=== PATIENT | female | born 1980 | race Caucasian/White ===

== ENCOUNTER 2017-03-03 07:15 | Emergency (ER) | payer BC, OTHER ==
[2017-03-03] MEDS ORDERED: diphenhydrAMINE HCL 50 MG/ML VIAL IV ONE (07:37)
[2017-03-03] MEDS ORDERED: METOCLOPRAMIDE HCL 5 MG/ML VIAL IV ONE (07:37)
[2017-03-03] MEDS ORDERED: PROMETHAZINE HCL 25 MG/ML AMPUL IM ONE (07:37)
[2017-03-03] MEDS ORDERED: PROMETHAZINE HCL 25 MG/ML AMPUL ONE (07:42)
--- NOTE | 2017-03-03 07:49 | ERNOTE ---
<AddyValdez - Last Filed: 03/03/17 10:08> Head Injury HPI - Immun/Allergies/Home Medications Immunization: IMMUNIZATION HX Immunizations Up to Date Yes History of Influenza Vaccine Yes Hx Pneumococcal Vaccination Yes Allergies/Adverse Reactions: Allergies Allergy/AdvReac Type Severity Reaction Status Date / Time azithromycin [From Zithromax] Allergy Unknown Verified 03/09/17 17:55 Home Medications: HOME MEDICATIONS Ibuprofen [Motrin] 600 mg PO Q6H PRN #0 tablet 05/16/14 [Last Taken Unknown] Acetaminophen [Tylenol] 325 mg PO PRN 07/25/15 [Last Taken Unknown] Ondansetron [Zofran Odt] 4 mg PO Q8H PRN #7 tab 03/03/17 [Last Taken Unknown] Mirena 03/08/17 [Last Taken Unknown] Xanax 0.25 mg PO DAILY PRN 03/08/17 [Last Taken Unknown] Amoxicillin/Potassium Clav [Augmentin 875-125 Tablet] 1 each PO BID #20 tablet 03/09/17 [Last Taken Unknown] Meclizine HCl [Antivert] 25 mg PO Q6H #28 tablet 03/09/17 [Last Taken Unknown] Mometasone Furoate [Nasonex] 1 spray NS DAILY #1 inhaler 03/09/17 [Last Taken Unknown] Ondansetron [Zofran Odt] 4 mg PO Q6H PRN #20 tab 03/09/17 [Last Taken Unknown] - Family History Father Family History - Medical: No pertinent hx Family History - Cardiac/Respiratory: No pertinent hx Mother Family History - Medical: No pertinent hx Family History - Cardiac/Respiratory: No pertinent hx ED Progress - Vital Signs Vital Signs: Vital Signs 03/03/17 03/03/17 07:19 08:35 Temperature 36.0 C L 36.5 C Pulse Rate 82 80 Respiratory 14 14 Rate Blood Pressure 159/107 130/78 O2 Sat by Pulse 100 98 Oximetry - CT/Ultrasound CT/Ultrasound Narrative: CT HEAD = NEGATIVE / ARGUS REPORT. - Progress/Reassessment Chief Complaint: Head Injury Departure Clinical Impression: Head contusion Qualifiers: Encounter type: sequela Contusion of head detail: unspecified part of head Qualified Code(s): S00.93XS - Contusion of unspecified part of head, sequela - Departure Disposition: Home Follow Up Needed Condition: Fair Instructions: Head Injury, Adult, [id number], Form - Excuse from Work, School , or Physical Activity Additional Instructions: REST, LIGHT DIET, ICE TO SORE AREA FOR 30 MINS EVERY 4 HOURS NEEDED. USE TYLENOL 650 MG EVERY 4 HOURS IF NEEDED. RECHECK WITH YOUR DOCTOR IF WORSE OR NOT IMPROVING IN 3-4 DAYS. Referrals: Kaity Carvajal MD [Primary Care Provider] - Prescriptions: Ondansetron [Zofran Odt] 4 mg PO Q8H PRN #7 tab PRN Reason: Vomiting <Riley Tamayo - Last Filed: 05/18/17 08:47> Head Injury HPI - Narrative Date of Service: 03/03/17 - General Injury to: head Source: patient - Immun/Allergies/Home Medications Immunization: IMMUNIZATION HX Immunizations Up to Date Yes History of Influenza Vaccine Yes Hx Pneumococcal Vaccination Yes - History of Present Illness Narrative: 26 year old that was putting her son to bed when their heads hit each other at about 2030 last night. Since the incident she has had a persistent headache that has worsened. The headache differs from her typical migraines in that it is in a number of locations. Last night she took a NSAID but it has not decreased the pain. Complaints of N/V and mild dizziness that has worsened. Hx of viral meningitis two years ago. Currently being treated with steroids and an antibiotic for an upper respiratory infection. Occurred: yesterday Location Occurred: home Severity: moderate Head Injury Location: frontal Method of Injury: Reports: direct blow Loss of Consciousness: Reports: no loss of consciousness Associated Symptoms: Reports: headaches, nausea, vomiting Review of Systems - Review of Systems Constitutional: Present: no symptoms reported EYE: Present: other - dizziness ENT: Present: no symptoms reported Respiratory: Present: See HPI Cardiology: Present: no symptoms reported Gastrointestinal/Abdominal: Present: nausea, vomiting Genitourinary: Present: no symptoms reported Musculoskeletal: Present: no symptoms reported Skin: Present: no symptoms reported Neurological: Present: anxiety, headache, dizziness/light-headedness Endocrine: Present: no symptoms reported Hematologic/Lymphatic: Present: no symptoms reported Psych: Present: no symptoms reported - Patient's Past Medical History Patient History - Medical: No pertinent hx Patient History - Cardiac/Respiratory: No pertinent hx Patient History - Cancer: No Hx of Cancer Patient History - Surgical Procedures: Cholecystectomy, D & C, Other Patient History - Other: None LMP (females 10-50): mirena - Family History Father Family History - Medical: No pertinent hx Family History - Cardiac/Respiratory: No pertinent hx Mother Family History - Medical: No pertinent hx Family History - Cardiac/Respiratory: No pertinent hx - Social History Living Situations: home Abuse History: No History of abuse Psych History: Hx of Anxiety Smoking Status: Never smoker Alcohol Use: occasionally Drug Use: none - Immunizations Immunizations Up to Date: Yes Hx Pneumococcal Vaccination: Yes History of Influenza Vaccine: Yes Physical Exam - Physical Exam Narrative: Appears to be in pain, holding an ice pack on her head. Mildly photophobic. General Appearance: Present: no apparent distress Eye Exam: Normal inspection: bilateral, PERRL: bilateral Ears, Nose, Throat: Present: normal ENT inspection Neck: Present: normal inspection, supple Respiratory: Present: no respiratory distress Cardiovascular/Chest: Present: regular rate, rhythm Gastrointestinal/Abdominal: Present: nondistended Back Exam: Present: normal inspection Extremity Exam: Present: normal inspection Neurological Exam: Present: alert, oriented, normal mood/affect, surveyor geodetic II-XII nml as tested, normal cerebellar test - heel to mar and finger to nose are normal. Skin Exam: Present: normal color ED Progress - Vital Signs Patient's Vital Signs:: I have reviewed the patient's vital signs. Vital Signs: Vital Signs 03/03/17 07:19 Temperature 36.0 C L Pulse Rate 82 Respiratory 14 Rate Blood Pressure 159/107 O2 Sat by Pulse 100 Oximetry - Transfer of Care Physician Sign Out: Riley Tamayo Receiving Physician: Valdez Daly - medications are pending to treat the migraine Pending Results: CT/MRI results, Pain-control
[2017-03-03] MEDS ORDERED: ACETAMINOPHEN 500 MG TABLET PO ONE (07:50)
[2017-03-03] MEDS ORDERED: diphenhydrAMINE HCL 50 MG/ML VIAL ONE (07:55)
[2017-03-03] MEDS ORDERED: METOCLOPRAMIDE HCL 5 MG/ML VIAL ONE (07:55)
[2017-03-03] MEDS ORDERED: DEXAMETHASONE SOD PHOSPHATE 10 MG/ML VIAL IV ONE (07:57)
[2017-03-03] MEDS ORDERED: DEXAMETHASONE SOD PHOSPHATE 10 MG/ML VIAL ONE (08:25)
[2017-03-03 10:19] VITALS: BP 138/80
== END 2017-03-03 10:23 | disposition home or self-care (01) ==
LOC: ER 07:15
DX: S00.93XA Contusion of unspecified part of head, initial encounter (principal); W50.0XXA Accidental hit or strike by another person, initial encounter; Y92.009 Unspecified place in unspecified non-institutional (private) residence as the place of occurrence of the external cause

== ENCOUNTER 2017-03-09 17:48 | Emergency (ER) | payer BC, OTHER ==
[2017-03-09] MEDS ORDERED: oxyCODONE HCL/ACETAMINOPHEN 1 TAB TABLET PO ONE (18:38)
[2017-03-09] MEDS ORDERED: MECLIZINE HCL 25 MG TABLET PO ONE (18:38)
[2017-03-09] MEDS ORDERED: KETOROLAC TROMETHAMINE 30 MG/ML VIAL IM ONE (18:38)
[2017-03-09] MEDS ORDERED: ONDANSETRON 4 MG TAB.RAPDIS PO ONE (18:38)
--- NOTE | 2017-03-09 18:45 | ERNOTE ---
Medical Problem HPI - Narrative Date of Service: 03/09/17 - General Chief Complaint: General Assessment Time Seen by Provider: 03/09/17 18:05 Source: patient Exam Limitations: no limitations - Immun/Allergies/Home Medications Immunizations: IMMUNIZATION HX Immunizations Up to Date Yes History of Influenza Vaccine Yes Hx Pneumococcal Vaccination Yes Allergies/Adverse Reactions: Allergies azithromycin [From Zithromax] Allergy (Unknown, Verified 03/09/17 17:55) Home Medications: HOME MEDICATIONS Ibuprofen [Motrin] 600 mg PO Q6H PRN #0 tablet 05/16/14 [Last Taken Unknown] Acetaminophen [Tylenol] 325 mg PO PRN 07/25/15 [Last Taken Unknown] Ondansetron [Zofran Odt] 4 mg PO Q8H PRN #7 tab 03/03/17 [Last Taken Unknown] Mirena 03/08/17 [Last Taken Unknown] Xanax 0.25 mg PO DAILY PRN 03/08/17 [Last Taken Unknown] Amoxicillin/Potassium Clav [Augmentin 875-125 Tablet] 1 each PO BID #20 tablet 03/09/17 [Last Taken Unknown] Meclizine HCl [Antivert] 25 mg PO Q6H #28 tablet 03/09/17 [Last Taken Unknown] Mometasone Furoate [Nasonex] 1 spray NS DAILY #1 inhaler 03/09/17 [Last Taken Unknown] Ondansetron [Zofran Odt] 4 mg PO Q6H PRN #20 tab 03/09/17 [Last Taken Unknown] - History of Present History Narrative: Last patient hit her head. Patient has been with headache, vertigo, unbalance, generalized weakness and some confusion. Patient was seen by PCP and was send to Physical Therapy. Timing: constant Severity: severe Modifying Factors - (Improves): Present: other - nothing Modifying Factors - (Worsens): Present: movement, other - head position changes Review of Systems - Review of Systems Constitutional: Present: weakness - generalized, malaise. Absent: fever, chills , diaphoresis EYE: Absent: double vision, vision changes ENT: Absent: ear pain, nose congestion, nasal drainage Respiratory: Present: no symptoms reported Cardiology: Present: no symptoms reported Gastrointestinal/Abdominal: Present: no symptoms reported Genitourinary: Present: no symptoms reported Musculoskeletal: Present: no symptoms reported Skin: Present: no symptoms reported Neurological: Present: headache, dizziness/light-headedness - vertigo, numbness. Absent: pre-existing deficit Endocrine: Present: no symptoms reported Hematologic/Lymphatic: Present: no symptoms reported Psych: Present: no symptoms reported All Other Systems: All systems neg except as marked - Patient's Past Medical History Patient History - Medical: No pertinent hx Patient History - Cardiac/Respiratory: No pertinent hx Patient History - Cancer: No Hx of Cancer Patient History - Surgical Procedures: Cholecystectomy, D & C, Other Patient History - Other: None - Family History Father Family History - Medical: No pertinent hx Family History - Cardiac/Respiratory: No pertinent hx Mother Family History - Medical: No pertinent hx Family History - Cardiac/Respiratory: No pertinent hx - Social History Living Situations: home Abuse History: No History of abuse Psych History: Hx of Anxiety Alcohol Use: occasionally Drug Use: none - Immunizations Immunizations Up to Date: Yes Hx Pneumococcal Vaccination: Yes History of Influenza Vaccine: Yes Physical Exam - Physical Exam General Appearance: Present: wd/wn, alert, no apparent distress Eye Exam: Normal inspection: bilateral, PERRL: bilateral, EOMI: bilateral Ears, Nose, Throat: Present: normal ENT inspection, normal pharynx Neck: Present: normal inspection, nontender Respiratory: Present: no respiratory distress, normal breath sounds, no accessory muscle use, chest nontender, lungs clear Cardiovascular/Chest: Present: regular rate, rhythm, no murmur, normal peripheral pulses Gastrointestinal/Abdominal: Present: normal bowel sounds, nontender, nondistended, soft, no organomegaly Extremity Exam: Present: normal inspection, non-tender, normal range of motion, no edema Neurological Exam: Present: alert, oriented, normal mood/affect, no motor/ sensory deficits, other - Hallpike Maneuver positive, GCS: 15/15, NIH Stroke Scale: 0 Skin Exam: Present: normal color, warm/dry Lymphatic Exam: Present: no adenopathy ED Progress - Date and Time Seen: Date and Time: 03/09/17 18:47 Patient was seen at ER on previously, CT of the head report was noticed. Patient was found with mucosal thickening. Patient was done labs recently and was found with mild elevated WBC. Patient has hx of head Tx. Patient still with vertigo and headache. Patient has Hx of Headaches. Patient with no LOC and no changes on vision. Patient will was found with nystagmus. Patient will be given Tx and pain management. 03/09/17 19:41 GCS: 15/15, NIH Stroke Scale: 0 Patient at the moment is feeling better and has no distress. Patient with a FMS and no gross neurologic deficits. - Results and Orders Patient's Lab Results:: I have reviewed the patient's lab results. Results and Orders: Patient was found with elevated WBC on 03/06/2017. Patient was using Prednisone - Vital Signs Patient's Vital Signs:: I have reviewed the patient's vital signs. Vital Signs: Vital Signs 03/09/17 17:51 Temperature 36.1 C L Pulse Rate 95 Respiratory 12 Rate Blood Pressure 147/98 O2 Sat by Pulse 93 Oximetry - CT/Ultrasound CT/Ultrasound Narrative: CT Head: Sinusitis noticed. Patient with no new intracranial changes reported on report by Radiologist. - Progress/Reassessment Chief Complaint: General Assessment Plan - Plan Plan: Patient is to follow up with PCP and Neurologist. Departure - Departure Clinical Impression: Vertigo Head contusion Qualifiers: Encounter type: sequela Contusion of head detail: unspecified part of head Qualified Code(s): S00.93XS - Contusion of unspecified part of head, sequela Sinusitis Qualifiers: Sinusitis location: unspecified location Chronicity: unspecified Qualified Code (s): J32.9 - Chronic sinusitis, unspecified Disposition: Home self-care Condition: Stable Instructions: General Headache Without Cause, Vertigo, [id number], Guillermo Maneuver Self-Care, Dizziness, [id number] Referrals: Kaity Carvajal MD [Primary Care Provider] - Prescriptions: Amoxicillin/Potassium Clav [Augmentin 875-125 Tablet] 1 each PO BID #20 tablet Meclizine HCl [Antivert] 25 mg PO Q6H #28 tablet Mometasone Furoate [Nasonex] 1 spray NS DAILY #1 inhaler Ondansetron [Zofran Odt] 4 mg PO Q6H PRN #20 tab PRN Reason: Nausea
[2017-03-09] MEDS ORDERED: oxyCODONE HCL/ACETAMINOPHEN 1 TAB TABLET ONE (18:58)
[2017-03-09] MEDS ORDERED: ONDANSETRON 4 MG TAB.RAPDIS ONE (18:58)
[2017-03-09] MEDS ORDERED: KETOROLAC TROMETHAMINE 30 MG/ML VIAL ONE (18:58)
[2017-03-09] MEDS ORDERED: MECLIZINE HCL 25 MG TABLET ONE (18:58)
[2017-03-09 19:06] VITALS: BP 143/93
== END 2017-03-09 20:31 | disposition home or self-care (01) ==
LOC: ER 17:48
DX: R42 Dizziness and giddiness (principal); S00.93XS Contusion of unspecified part of head, sequela; J32.9 Chronic sinusitis, unspecified; W50.0XXS Accidental hit or strike by another person, sequela; Y92.009 Unspecified place in unspecified non-institutional (private) residence as the place of occurrence of the external cause